=== PATIENT | male | born 1970 | race Caucasian/White ===

== ENCOUNTER 2017-08-08 00:38 | Emergency (ER) | payer OTHER ==
[~2017-08-08] VITALS: Ht 170.2 cm; Wt 83.4 kg
[2017-08-08 00:39] VITALS: BP 132/83
[2017-08-08] MEDS ORDERED: FLUORESCEIN OPHTHALMIC 1 MG STRIP ONE (00:40)
[2017-08-08] MEDS ORDERED: PROPARACAINE OPHTH 0.5%, 15ML ONE (00:40)
[2017-08-08] MEDS ORDERED: FLUORESCEIN OPHTHALMIC 1 MG STRIP LEFTEYE ONE (01:00)
[2017-08-08] MEDS ORDERED: PROPARACAINE OPHTH 0.5%, 15ML LEFTEYE ONE (01:00)
== END 2017-08-08 01:44 | disposition home or self-care (01) ==
LOC: ED 01:20
DX: H57.12 Ocular pain, left eye (principal)
CPT/HCPCS: 99283